=== PATIENT | female | born 1975 | race Caucasian/White ===

== ENCOUNTER → 2023-11-26 14:30 | Outpatient (REF) | payer OTHER, SELFPAY | LOC: RAD 14:30 | PROVIDERS: ATTENDING PHYSICIAN Neurological Surgery; FAMILY PHYSICIAN Family Medicine | DX: D32.9 Benign neoplasm of meninges, unspecified (principal) | CPT/HCPCS: 72040 ==

== ENCOUNTER → 2023-12-30 08:10 | Outpatient (REF) | payer OTHER, SELFPAY | LOC: PAVMRI 08:10 | PROVIDERS: ATTENDING PHYSICIAN Neurological Surgery; FAMILY PHYSICIAN Family Medicine | DX: Z98.1 Arthrodesis status (principal) | CPT/HCPCS: 72156; A9575 ==

== ENCOUNTER → 2024-01-01 15:12 | Outpatient (REF) | payer OTHER, SELFPAY | LOC: RAD 15:12 | PROVIDERS: FAMILY PHYSICIAN Family Medicine | DX: Z98.1 Arthrodesis status (principal) | CPT/HCPCS: 72050 ==

== ENCOUNTER → 2024-04-15 11:26 | Outpatient (REF) | payer OTHER, SELFPAY | LOC: RAD 11:26 | PROVIDERS: ATTENDING PHYSICIAN Nurse Practitioner Acute Care; FAMILY PHYSICIAN Family Medicine | DX: Z98.1 Arthrodesis status (principal) | CPT/HCPCS: 72050 ==

== ENCOUNTER → 2024-08-31 11:05 | Outpatient (REF) | payer OTHER, SELFPAY | LOC: HWRAD 11:05 | PROVIDERS: ATTENDING PHYSICIAN Nurse Practitioner Acute Care; FAMILY PHYSICIAN Family Medicine | DX: Z98.1 Arthrodesis status (principal); D32.9 Benign neoplasm of meninges, unspecified | CPT/HCPCS: 72052; 72125 ==

== ENCOUNTER → 2024-09-10 14:32 | Outpatient (REF) | payer OTHER, SELFPAY | LOC: PAVMRI 14:32 | PROVIDERS: ATTENDING PHYSICIAN Nurse Practitioner Acute Care; FAMILY PHYSICIAN Family Medicine | DX: D32.9 Benign neoplasm of meninges, unspecified (principal); Z98.1 Arthrodesis status | CPT/HCPCS: 72156; A9575 ==